=== PATIENT | female | born 1995 | race Hispanic/Latino ===

== ENCOUNTER 2018-12-26 11:28 | Emergency (ER) | payer OTHER ==
[2018-12-26 11:42] VITALS: BP 151/84; PULSE 90; RESP 16; TEMP 97.8; O2SAT 99
--- NOTE | 2018-12-26 12:45 | ED PDOC ---
HPI: General Adult Time Seen by Provider: 12/26/18 12:43 Chief Complaint (Nursing): Female Genitourinary Chief Complaint (Provider): DYSURIA History Per: Patient (23 Y/O FEMALE WITH ONE DAY OF DYSURIA NOTED TODAY. STATES THIS IS SIMILAR TO H/O UTI. NO FEVERS/CHILLS/BACK PAIN/ABD PAIN. ) Past Medical History Reviewed: Historical Data, Nursing Documentation, Vital Signs Vital Signs: Last Vital Signs Temp 97.8 F 12/26/18 11:40 Pulse 90 12/26/18 11:40 Resp 16 12/26/18 11:40 BP 151/84 H 12/26/18 11:40 Pulse Ox 99 12/26/18 11:40 - Family History Family History: States: No Known Family Hx - Home Medications Home Medications: Ambulatory Orders Medication Instructions Recorded Cephalexin [Keflex] 500 mg PO TID #15 capsule 12/26/18 Phenazopyridine HCl [Pyridium] 100 mg PO BID PRN #6 tablet 12/26/18 - Allergies Allergies/Adverse Reactions: Allergies Allergy/AdvReac Type Severity Reaction Status Date / Time No Known Allergies Allergy Verified 12/26/18 11:40 Review of Systems ROS Statement: Except As Marked, All Systems Reviewed And Found Negative Physical Exam - Reviewed Nursing Documentation Reviewed: Yes Vital Signs Reviewed: Yes - Physical Exam Appears: Positive for: Well, Non-toxic, No Acute Distress Head Exam: Positive for: ATRAUMATIC, NORMAL INSPECTION, NORMOCEPHALIC Skin: Positive for: Normal Color, Warm, DRY Eye Exam: Positive for: EOMI, Normal appearance, PERRL ENT: Positive for: Normal ENT Inspection Neck: Positive for: Normal, Painless ROM Cardiovascular/Chest: Positive for: Regular Rate, Rhythm Respiratory: Positive for: CNT, Normal Breath Sounds Gastrointestinal/Abdominal: Positive for: Normal Exam, Soft Back: Positive for: Normal Inspection Extremity: Positive for: Normal ROM Neurologic/Psych: Positive for: Alert, Oriented - Laboratory Results Urine POC: Negative Urine dip results: Positive for: Leukocyte Esterase, Blood. Negative for: Nitrate, Ketones, Glucose, Bilirubin - ECG O2 Sat by Pulse Oximetry: 99 Disposition - Clinical Impression Clinical Impression: Urinary tract infection - Patient ED Disposition Is Patient to be Admitted: No - Disposition Disposition: Routine/Home Disposition Time: 12:44 Condition: FAIR Prescriptions: Cephalexin [Keflex] 500 mg PO TID #15 capsule Phenazopyridine HCl [Pyridium] 100 mg PO BID PRN #6 tablet PRN Reason: Urinary Discomt Instructions: Urinary Tract Infections in Adults
[2018-12-26 12:56] LABS: SQUAMOUS EPITHIAL < 1 /hpf (0-5); URINE AMORPHOUS SEDIMENT RARE /ul (<OCC); URINE BACTERIA RARE (<OCC); URINE BILIRUBIN NEGATIVE (NEGATIVE); URINE BLOOD SMALL (NEGATIVE); URINE CLARITY SLIGHTY-CLOUDY (Clear); URINE COLOR STRAW (YELLOW); URINE GLUCOSE (UA) NEG (NEGATIVE); URINE LEUKOCYTE ESTERASE MOD Leu/uL (Negative); URINE PROTEIN NEGATIVE (NEGATIVE); URINE UROBILINOGEN 0.2-1.0 mg/dL (0.2-1.0)
== END 2018-12-26 13:06 | disposition home or self-care (01) ==
LOC: H.ER 11:28
DX: N39.0 Urinary tract infection, site not specified (principal)